=== PATIENT | female | born 1975 | race Caucasian/White ===

== ENCOUNTER 2018-02-18 14:57 | Outpatient (CLI) | payer OTHER | END 2018-02-18 14:58 | disposition home or self-care (01) | LOC: BICMAMMO 14:57 | PROVIDERS: ATTEND Obstetrics & Gynecology | DX: Z12.31 Encounter for screening mammogram for malignant neoplasm of breast (principal); Z80.3 Family history of malignant neoplasm of breast | CPT/HCPCS: 77063; 77067 ==

== ENCOUNTER 2019-02-21 13:18 | Outpatient (CLI) | payer OTHER ==
--- NOTE | 2019-02-21 14:14 | MMO ---
Bilateral MAMMO Bilat Screen [facility]. CLINICAL HISTORY: Patient is 43 years old and is seen for screening. The patient has the following family history of breast cancer: maternal aunt, at age 40, malignant (generic). The patient has no personal history of cancer. VIEWS: The views performed were: bilateral craniocaudal with tomosynthesis; bilateral mediolateral oblique with tomosynthesis; and bilateral exaggerated craniocaudal. FILMS COMPARED: The present examination has been compared to a prior imaging study performed at [facility] on 02/18/2018. MAMMOGRAM FINDINGS: The breasts are heterogeneously dense, which could obscure a lesion on mammography. There are no suspicious masses, suspicious calcifications, or new areas of architectural distortion. IMPRESSION: THERE IS NO MAMMOGRAPHIC EVIDENCE OF MALIGNANCY. A ROUTINE FOLLOW-UP MAMMOGRAM IN 1 YEAR IS RECOMMENDED. THE RESULTS OF THIS EXAM WERE SENT TO THE PATIENT. ACR BI-RADS Category 1 - Negative MAMMOGRAPHY NOTE: 1. A negative mammogram report should not delay a biopsy if a dominant of clinically suspicious mass is present. 2. Approximately 10% to 15% of breast cancers are not detected by mammography. 3. Adenosis and dense breasts may obscure an underlying neoplasm. Reported by: VANESSA DOTY MD Electonically Signed: [id number]
== END 2019-02-21 13:19 | disposition home or self-care (01) ==
LOC: BICMAMMO 13:18
PROVIDERS: ATTEND Obstetrics & Gynecology
DX: Z12.31 Encounter for screening mammogram for malignant neoplasm of breast (principal); Z80.3 Family history of malignant neoplasm of breast
CPT/HCPCS: 77063; 77067

== ENCOUNTER 2020-02-21 09:42 | Outpatient (CLI) | payer OTHER ==
--- NOTE | 2020-02-21 10:55 | MMO ---
Bilateral MAMMO Bilat Diag [facility]. CLINICAL HISTORY: Patient is 44 years old and is seen for diagnostic exam and skin thickening or retraction on clinical examination in the right breast at 6 o'clock. The patient has the following family history of breast cancer: maternal aunt, at age 40, malignant (generic). The patient has no personal history of cancer. VIEWS: The views performed were: bilateral craniocaudal with tomosynthesis; bilateral mediolateral oblique with tomosynthesis; and bilateral mediolateral with tomosynthesis. FILMS COMPARED: The present examination has been compared to prior imaging studies performed at [facility] on 02/18/2018, 02/21/2019 and 02/21/2020. This study has been interpreted with the assistance of computer-aided detection. MAMMOGRAM FINDINGS: The breasts are heterogeneously dense, which could obscure a lesion on mammography. There is an irregular mass seen in the posterior central region of the right breast. In the left breast, there are no suspicious masses, calcifications or areas of architectural distortion. IMPRESSION: MASS IN THE RIGHT BREAST IS HIGHLY SUGGESTIVE OF MALIGNANCY. AN ULTRASOUND-GUIDED BREAST BIOPSY IS RECOMMENDED. THE RESULTS OF THIS EXAM WERE SENT TO THE PATIENT. ACR BI-RADS Category 5 - Highly suggestive of malignancy - appropriate action should be taken MAMMOGRAPHY NOTE: 1. A negative mammogram report should not delay a biopsy if a dominant of clinically suspicious mass is present. 2. Approximately 10% to 15% of breast cancers are not detected by mammography. 3. Adenosis and dense breasts may obscure an underlying neoplasm. Reported by: VANESSA DOTY MD Electonically Signed: [id number]
--- NOTE | 2020-02-21 12:30 | ULT ---
RIGHT BREAST ULTRASOUND: HISTORY: Dimpling of the right nipple. FINDINGS: Correlation is made with the mammogram of same date. Sonographic evaluation of the right breast demonstrates an irregular shadowing solid-appearing mass a t the 8 o'clock position of the right retroareolar breast corresponding to mammographic finding and m easuring about 2 cm in largest dimension. The right axilla demonstrates no abnormal lymph nodes. IMPRESSION: BIRADS category 5: highly suggestive for malignancy. Ultrasound-guided biopsy is recommended. Discussed in person with the patient at 10:[address] Kayla Nolan's nurse, Kim Garcia, over the telephone at 10:50 a.m. REMI HUBBARD
== END 2020-02-21 09:43 | disposition home or self-care (01) ==
LOC: BICMAMMO 09:42
PROVIDERS: ATTEND Obstetrics & Gynecology
DX: Z87.2 Personal history of diseases of the skin and subcutaneous tissue (principal); N63.13 Unspecified lump in the right breast, lower outer quadrant
CPT/HCPCS: 77066; G0279

== ENCOUNTER 2020-05-02 07:34 | Outpatient (CLI) | payer MEDICAID, OTHER ==
[2020-05-02 16:50] LABS: SARS-CoV-2 MS2 Positive; SARS-CoV-2 N Gene Negative; SARS-CoV-2 S Gene Negative; SARS-CoV-2 by NAA Not Detected (NotDetected); SARS-CoV-2 orf1ab Negative
== END 2020-05-02 07:35 | disposition home or self-care (01) ==
LOC: LABBT 07:34
PROVIDERS: ATTEND Surgery
DX: C50.919 Malignant neoplasm of unspecified site of unspecified female breast (principal); Z20.828 Contact with and (suspected) exposure to other viral communicable diseases
CPT/HCPCS: 87635; U0003

== ENCOUNTER 2020-05-04 11:01 | Day surgery (SDC) | payer MEDICAID ==
[2020-05-03 09:24] VITALS: BMI 23.3
[2020-05-04] MEDS ORDERED: PROPOFOL 200 MG/20 ML VIAL ONE (13:31)
[2020-05-04] MEDS ORDERED: Fentanyl 100 MCG/2 ML VIAL ONE (14:30)
[2020-05-04] MEDS ORDERED: Propofol 500 MG/50 ML VIAL ONE (14:30)
[2020-05-04] MEDS ORDERED: Midazolam HCl 2 mg/2 ml Vial ONE (14:30)
[2020-05-04] MEDS ORDERED: Lidocaine 2% w/Epinephrine 1:200K 20 ML VIAL ONE (14:39)
[2020-05-04] MEDS ORDERED: Bupivacaine 0.25% HCL 30 ML VIAL ONE (14:39)
--- NOTE | 2020-05-04 16:15 | RAD ---
Chest AP view INDICATION: Mediport placement COMPARISON: Prior chest one view dated July 29, 2014 FINDINGS: Lungs: The lungs are clear Cardiac silhouette: The cardiomediastinal silhouette appears within normal limits. Pulmonary vasculature: Normal Pleural spaces: No pleural effusion or pneumothorax is demonstrated. Upper abdomen: No abnormality seen. Osseous structures: No acute osseous abnormality. Additional findings: There is a new right IJ chest wall port. Tip of the catheter is seen within the region of SVC. IMPRESSION: New right IJ chest wall port. No pneumothorax.
--- NOTE | 2020-05-07 07:55 | OP ---
DATE OF PROCEDURE: 05/04/2020 PREOPERATIVE DIAGNOSIS: Breast cancer. POSTOPERATIVE DIAGNOSIS: Breast cancer. PROCEDURE PERFORMED: Tunneled central line with subcutaneous port (MediPort, CT injectable). ANESTHESIA: General. ESTIMATED BLOOD LOSS: Minimal. COMPLICATIONS: None. SPECIMENS: None. FINDINGS: Right IJ. DESCRIPTION OF PROCEDURE: The patient was taken to the operating room and laid supine on the operating room table. After sedation was obtained, bilateral neck and chest were prepped and draped in a sterile fashion. Local anesthetic infiltrated over the right internal jugular vein. Internal jugular vein was cannulated using a 22-gauge Finder needle followed by a Seldinger needle. Wire was passed into the superior vena cava under fluoro guidance. A small gomez was made at the wire entrance site. A separate 3-cm incision was made in the right upper chest. Subcutaneous pocket made below the lower incision. Tubing for the MediPort tunneled from the inferior to superior incision and suture sheath was placed over the wire into the superior vena cava. The dilator and wire were removed. The end of the catheter was sewed into the sheath. The sheath was peeled away. The tip of the catheter was at the atriocaval junction. MediPort tubing was cut to fit the MediPort at the lower incision, connected to the MediPort. The MediPort was sewn to the chest wall in the subcutaneous pocket using Prolene. The wounds were all irrigated and closed using 3-0 Vicryl, 4-0 Monocryl, and Dermabond. The MediPort flushes and draws blood without difficulty. It was flushed with a heparin flush. The patient was sent to Recovery in stable condition. All instrument counts, needle counts, and lap counts were correct. Job ID: [id number]
== END 2020-05-04 17:00 | disposition home or self-care (01) ==
LOC: SDC 11:01
PROVIDERS: ATTEND Surgery
PROC: 02HV33Z Insertion of Infusion Device into Superior Vena Cava, Percutaneous Approach (ICD-10-PCS; principal; 2020-05-04)
DX: C50.919 Malignant neoplasm of unspecified site of unspecified female breast (principal); F41.9 Anxiety disorder, unspecified; Z79.899 Other long term (current) drug therapy; Z88.1 Allergy status to other antibiotic agents; Z88.5 Allergy status to narcotic agent
CPT/HCPCS: 71045; C1788; J0690; J1642; J2250; J2704; J3010; S0020

== ENCOUNTER 2022-02-24 08:19 | Outpatient (CLI) | payer OTHER | END 2022-02-24 08:20 | disposition home or self-care (01) | LOC: BICMAMMO 08:19 | PROVIDERS: ATTEND Internal Medicine Hematology & Oncology | DX: Z08 Encounter for follow-up examination after completed treatment for malignant neoplasm (principal); Z85.3 Personal history of malignant neoplasm of breast; Z98.890 Other specified postprocedural states | CPT/HCPCS: 77066; G0279 ==

== ENCOUNTER 2022-10-14 09:52 | Outpatient (CLI) | payer OTHER | END 2022-10-14 09:53 | disposition home or self-care (01) | LOC: BICMAMMO 09:52 | PROVIDERS: ATTEND Internal Medicine Hematology & Oncology | DX: C50.511 Malignant neoplasm of lower-outer quadrant of right female breast (principal); M85.80 Other specified disorders of bone density and structure, unspecified site | CPT/HCPCS: 77080 ==

== ENCOUNTER 2023-09-22 08:54 | Outpatient (CLI) | payer OTHER | END 2023-09-22 08:55 | disposition home or self-care (01) | LOC: SCSMRI 08:54 | PROVIDERS: ATTEND Nurse Practitioner Family | DX: M54.16 Radiculopathy, lumbar region (principal); M47.12 Other spondylosis with myelopathy, cervical region; M48.02 Spinal stenosis, cervical region; M48.04 Spinal stenosis, thoracic region; C79.51 Secondary malignant neoplasm of bone; C78.7 Secondary malignant neoplasm of liver and intrahepatic bile duct; S22.051A Stable burst fracture of T5-T6 vertebra, initial encounter for closed fracture; S22.061A Stable burst fracture of T7-T8 vertebra, initial encounter for closed fracture; S22.081A Stable burst fracture of T11-T12 vertebra, initial encounter for closed fracture | CPT/HCPCS: 72141; 72146; 72148 ==

== ENCOUNTER 2023-09-25 12:11 | Outpatient (CLI) | payer OTHER ==
[2023-09-25] MEDS ORDERED: Magnevist 469MG/ML 20 ML VIAL ONE ×2 (15:09)
== END 2023-09-25 12:12 | disposition home or self-care (01) ==
LOC: MRI 12:11
PROVIDERS: ATTEND Radiology Radiation Oncology
DX: C79.51 Secondary malignant neoplasm of bone (principal); D49.7 Neoplasm of unspecified behavior of endocrine glands and other parts of nervous system; M84.48XA Pathological fracture, other site, initial encounter for fracture; M48.04 Spinal stenosis, thoracic region; G96.198 Other disorders of meninges, not elsewhere classified
CPT/HCPCS: 72142; 72147; A9579

== ENCOUNTER → 2023-10-05 | Day surgery (SDC) | payer OTHER ==
[~2023-10-05] MED LIST: Lidocaine 1% PF 5 ML VIAL ONE; Sodium Bicarbonate 2.5 MEQ/5 ML SDV ONE
== END ==
LOC: ULT 10:15
PROVIDERS: ATTEND Internal Medicine Hematology & Oncology
PROC: 07963ZX Drainage of Left Axillary Lymphatic, Percutaneous Approach, Diagnostic (ICD-10-PCS; principal; 2023-10-05)
DX: C50.511 Malignant neoplasm of lower-outer quadrant of right female breast (principal); C22.9 Malignant neoplasm of liver, not specified as primary or secondary; C79.51 Secondary malignant neoplasm of bone; Z17.0 Estrogen receptor positive status [ER+]; Z88.1 Allergy status to other antibiotic agents; Z88.5 Allergy status to narcotic agent; Z88.8 Allergy status to other drugs, medicaments and biological substances
CPT/HCPCS: 38505; 76942; 88305; 88341; 88342

== ENCOUNTER 2023-10-06 10:10 | Outpatient (CLI) | payer OTHER | END 2023-10-06 10:11 | disposition home or self-care (01) | LOC: SCSMRI 10:10 | PROVIDERS: ATTEND Internal Medicine Hematology & Oncology | DX: C50.911 Malignant neoplasm of unspecified site of right female breast (principal); C79.51 Secondary malignant neoplasm of bone | CPT/HCPCS: 70553 ==

== ENCOUNTER → 2023-10-20 | Day surgery (SDC) | payer OTHER ==
[~2023-10-20] MED LIST changes: +FLU VACC QS2023-24(6MOS UP)/PF 60 MCG/0.5 ML SYRINGE IM ONE; -Lidocaine 1% PF 5 ML VIAL ONE; +Methotrexate Sodium/PF 12 MG in Sodium Chloride 0.9% 9.52 ML IT SCH
[2023-10-20 09:50] VITALS: BP 160/90; TEMP 98.5
== END ==
LOC: RAD 07:41
PROVIDERS: ATTEND Internal Medicine Hematology & Oncology
PROC: 009U3ZX Drainage of Spinal Canal, Percutaneous Approach, Diagnostic (ICD-10-PCS; principal; 2023-10-20)
PROC: B01BZZZ Fluoroscopy of Spinal Cord (ICD-10-PCS; principal; 2023-10-20)
DX: C50.511 Malignant neoplasm of lower-outer quadrant of right female breast (principal); Z17.0 Estrogen receptor positive status [ER+]; Z98.890 Other specified postprocedural states; Z88.1 Allergy status to other antibiotic agents; Z88.5 Allergy status to narcotic agent; Z88.8 Allergy status to other drugs, medicaments and biological substances; Z79.899 Other long term (current) drug therapy
CPT/HCPCS: 62270; 88112; J9250

== ENCOUNTER 2023-10-21 08:24 | Day surgery (SDC) | payer OTHER ==
[2023-10-20 14:24] VITALS: BMI 19.5
[2023-10-21] MEDS ORDERED: Midazolam HCl 2 mg/2 ml Vial ONE (09:59)
[2023-10-21] MEDS ORDERED: Famotidine/PF 20 mg/2ml Vial ONE (10:00)
[2023-10-21 10:07] LABS: #Monocytes 0.2 thou/uL (0.11-0.59); #Neutrophils 4.3 thou/uL (1.40-6.50); %Eosinophils 0.3 % (0.0-10.0); %Lymphocytes 25.4 % (21.0-51.0); %Monocytes 2.8 % (0.0-10.0); %Neutrophils 69.9 % (42.0-75.0); Hematocrit 37.2 % (36.0-47.0); Mean Corpuscular HGB CONC 32.3 g/dL (32.0-36.0); Mean Corpuscular Hemoglobin 26.5 pg (27.0-31.0); Mean Corpuscular Volume 82.1 fl (78.0-98.0); Platelet Count 184 10x3/uL (130-400); RBC Distribution Width 23.2 % (11.5-14.5); Red Blood Cell (RBC) Count 4.53 mill/uL (4.20-5.40); White Blood Cell (WBC) Count 6.1 10x3/uL (4.8-10.8)
[2023-10-21 10:23] LABS: Anion Gap 17 mmol/L (10-20); BUN (Urea Nitrogen) 24 mg/dL (7.0-18.7); Calc. Creatinine Clearance 97 mL/min (70-130); Calcium 9.5 mg/dL (7.8-10.44); Carbon Dioxide 23 mmol/L (22-29); Chloride 100 mmol/L (98-107); Estimated GFR 113; Glucose 88 mg/dL (70-105); Sodium 136 mmol/L (136-145)
[2023-10-21] MEDS ORDERED: EPINEPHrine 1 MG/ML VIAL ONE (10:36)
[2023-10-21] MEDS ORDERED: Bupivacaine 0.25% HCL 30 ML VIAL ONE (10:36)
[2023-10-21] MEDS ORDERED: Lidocaine 2% PF 5 ML VIAL ONE (10:37)
[2023-10-21] MEDS ORDERED: Propofol 1,000 MG/100 ML VIAL IV ONE (10:38)
[2023-10-21] MEDS ORDERED: Lidocaine 1% PF 5 ML VIAL ONE (10:45)
[2023-10-21] MEDS ORDERED: CEFAZOLIN 2 GM VIAL ONE (10:47)
[2023-10-21] MEDS ORDERED: Sodium Chloride 0.9% 100 ML ONE (10:47)
[2023-10-21] MEDS ORDERED: fentaNYL PF 100 MCG/2 ML SYRINGE ONE (10:57)
[2023-10-21] MEDS ORDERED: Dexamethasone 20 MG/5 ML VIAL ONE (11:15)
== END 2023-10-21 13:24 | disposition home or self-care (01) ==
LOC: SDC 08:24
PROVIDERS: ATTEND Surgery
PROC: 0JH60WZ Insertion of Totally Implantable Vascular Access Device into Chest Subcutaneous Tissue and Fascia, Open Approach (ICD-10-PCS; principal; 2023-10-21)
DX: C50.511 Malignant neoplasm of lower-outer quadrant of right female breast (principal); C79.51 Secondary malignant neoplasm of bone; Z88.5 Allergy status to narcotic agent; Z88.1 Allergy status to other antibiotic agents; Z88.8 Allergy status to other drugs, medicaments and biological substances
CPT/HCPCS: 71045; 80048; 85025; C1788; J0171; J0665; J1100; J1642; J2001; J2250; J2704; J3490; S0028

== ENCOUNTER 2023-11-27 16:09 | Inpatient (IN) | payer OTHER ==
[~2023-11-27 16:09] MED LIST changes: -FLU VACC QS2023-24(6MOS UP)/PF 60 MCG/0.5 ML SYRINGE IM ONE; +Iopamidol-370 76% 500 ML MDV (1 ML CHARGE) ONE; -Methotrexate Sodium/PF 12 MG in Sodium Chloride 0.9% 9.52 ML IT SCH; -Sodium Bicarbonate 2.5 MEQ/5 ML SDV ONE
[2023-11-27 16:49] LABS: Hematocrit 23.3 % (36.0-47.0); Hemoglobin 7.8 g/dL (12.0-16.0); Mean Corpuscular HGB CONC 33.5 g/dL (32.0-36.0); Mean Corpuscular Hemoglobin 29.7 pg (27.0-31.0); Mean Corpuscular Volume 88.6 fL (78.0-98.0); Platelet Count 63 10x3/uL (130-400); RBC Distribution Width 28.2 % (11.5-14.5); Red Blood Cell (RBC) Count 2.63 mill/uL (4.20-5.40)
[2023-11-27 16:53] LABS: PTT 23.9 sec (22.9-36.1)
[2023-11-27 16:54] LABS: INR-International Normal Ratio 1.1
[2023-11-27 17:03] LABS: Troponin I 0.099 ng/mL (< 0.028)
[2023-11-27 17:06] LABS: Anion Gap 12 mmol/L (10-20)
[2023-11-27] MEDS ORDERED: Acetaminophen 500 MG TAB ONE (17:10)
[2023-11-27 17:11] LABS: ALT (SGPT) 134 U/L (8-55); AST (SGOT) 151 U/L (5-34); Albumin 2.2 g/dL (3.5-5.0); Alkaline Phosphatase 739 U/L (40-110); BUN (Urea Nitrogen) 17 mg/dL (7.0-18.7); Bilirubin, Total 1.9 mg/dL (0.2-1.2); CK (CPK) 484 U/L (29-168); Calc. Creatinine Clearance 0 mL/min (70-130); Calcium 8.3 mg/dL (7.8-10.44); Carbon Dioxide 28 mmol/L (22-29); Chloride 99 mmol/L (98-107); Estimated GFR 125; Glucose 99 mg/dL (70-105); Lipase 25 U/L (8-78); Magnesium 2.1 mg/dL (1.6-2.6); Potassium 4.3 mmol/L (3.5-5.1); Protein, Total 5.2 g/dL (6.0-8.3); Sodium 135 mmol/L (136-145)
[2023-11-27 17:23] LABS: Influenza A by NAA Not Detected (NotDetected); Influenza B by NAA Not Detected (NotDetected); RSV by NAA Not Detected (NotDetected); SARS-CoV-2 NAA Rapid Test Not Detected (NotDetected)
[2023-11-27 17:27] LABS: Anisocytosis MODERATE=16-30 cells HPF (0-5); Band 3 % (5-11); Elliptocytes SLIGHT = 2-5 cells HPF (0-1); Large Platelets 12.5 % (0-5); Lymphocytes 77 % (21-51); Metamyelocyte 2 % (0-0); Monocytes 3 % (0-10); Myelocyte 4 % (0-0); Neutrophil 7 % (42-75); Nucleated RBC (Manual Ct) 31 % (0); Other Cell Types 2.7; Ovalocytes SLIGHT = 2-5 cells HPF (0-1); Platelet Adequacy Comment Platelets Decreased; Poikilocytosis SLIGHT = 6-15 cells HPF (0-5); Polychromasia MODERATE = 3-4 cells HPF (0-2); Reactive Lymphocytes 2 % (0-10); Reflex for Review?? YES; Smudge Cells 38.4 %; Spherocytes SLIGHT = 1-5 cells HPF (None Seen)
[2023-11-27] MEDS ORDERED: Piperacillin/Tazobactam 4.5 GM VIAL ONE (17:30)
[2023-11-27] MEDS ORDERED: Ipratropium/Albuterol 3 ML NEB EZPAP PRN (18:27)
[2023-11-27] MEDS ORDERED: Vancomycin 1 GM/200 ML (FROZEN) BAG ONE (18:30)
[2023-11-27] MEDS ORDERED: Guaifenesin DM 100-10/5 ML UDCUP PO PRN (18:49)
[2023-11-27] MEDS ORDERED: Ondansetron ODT 4 MG TAB PO PRN (19:00)
[2023-11-27 19:01] LABS: Bacteria/HPF None Seen HPF (None Seen); Bilirubin Negative (Negative); Blood, Urine Negative (Negative); CAUTI Indications for Culture Dysuria,urgency,freq; Clarity Clear (Clear); Glucose, Urine (Dipstick) Normal (Negative); Ketone, Urine Trace mg/dL (Negative); Leukocyte Negative Leu/uL (Negative); Nitrite Negative (Negative); Protein, Urine (Dipstick) Negative (Neg-Trace); RBC/HPF None Seen HPF (0-3); Specific Gravity, Urine 1.011 (1.002-1.036); Squamous Epithelial None Seen HPF (0-3); Urobilinogen Normal mg/dL (Less than 2); WBC/HPF None Seen HPF (0-3)
[2023-11-27 19:14] LABS: Urine Culture Reflex No No
[2023-11-27 22:14] VITALS: BMI 19.3
[2023-11-27] MEDS: Piperacillin/Tazobactam 3.375 GM in Sodium Chloride 0.9% 100 ML IVPB SCH (22:38)
[2023-11-27] MEDS: Dexamethasone 1 MG TAB PO SCH (22:39)
[2023-11-28] MEDS: Vancomycin 1 GM in Premix 1 BAG IVPB SCH (00:08)
[2023-11-28] MEDS ORDERED: Vancomycin 1 GM in Premix 1 BAG IVPB SCH (02:00)
[2023-11-28 02:33] LABS: Hematocrit 26.1 % (36.0-47.0); Hemoglobin 8.9 g/dL (12.0-16.0); Mean Corpuscular HGB CONC 34.1 g/dL (32.0-36.0); Mean Corpuscular Hemoglobin 28.9 pg (27.0-31.0); Mean Corpuscular Volume 84.7 fL (78.0-98.0); Mean Platelet Volume 11.5 fL (7.4-10.4); Platelet Count 52 10x3/uL (130-400); RBC Distribution Width 22.9 % (11.5-14.5); Red Blood Cell (RBC) Count 3.08 mill/uL (4.20-5.40)
[2023-11-28 02:50] LABS: Band 3 % (5-11); Large Platelets 2.9 % (0-5); Lymphocytes 88 % (21-51); Myelocyte 3 % (0-0); Neutrophil 6 % (42-75); Nucleated RBC (Manual Ct) 27 % (0); Platelet Adequacy Comment Platelets Decreased; Polychromasia SLIGHT = 2-3 cells HPF (0-2); Smudge Cells 8.8 %
[2023-11-28 03:00] LABS: Legionella Urinary Ag Negative (Negative); Strep pneumo Urine Ag NEGATIVE (NEGATIVE)
[2023-11-28 04:03] LABS: Anion Gap 11 mmol/L (10-20); Globulin 2.6 g/dL (2.4-3.5)
[2023-11-28 04:04] LABS: Vancomycin, Random 38.4 ug/mL (See Comment)
[2023-11-28 04:07] LABS: ALT (SGPT) 102 U/L (8-55); AST (SGOT) 117 U/L (5-34); Albumin 1.8 g/dL (3.5-5.0); Alkaline Phosphatase 575 U/L (40-110); BUN (Urea Nitrogen) 11 mg/dL (7.0-18.7); Bilirubin, Total 2.1 mg/dL (0.2-1.2); Calc. Creatinine Clearance 161 mL/min (70-130); Calcium 7.4 mg/dL (7.8-10.44); Carbon Dioxide 24 mmol/L (22-29); Chloride 104 mmol/L (98-107); Estimated GFR 128; Glucose 141 mg/dL (70-105); Potassium 3.4 mmol/L (3.5-5.1); Protein, Total 4.4 g/dL (6.0-8.3); Sodium 136 mmol/L (136-145)
[2023-11-28] MEDS: Potassium Chloride 20 MEQ TAB PO SCH (08:16)
[2023-11-28] MEDS: Dexamethasone 1 MG TAB PO SCH (08:17)
[2023-11-28] MEDS: Ipratropium/Albuterol 3 ML NEB NEB SCH ×2 (10:58→14:10)
[2023-11-28] MEDS: NS 0.9% w/ 20 MEQ KCL 1,000 ML/1,000 ML BAG IV SCH (11:22)
[2023-11-28] MEDS: TBO-Filgrastim 300 MCG/0.5 ML VIAL SC SCH (11:23)
[2023-11-28] MEDS ORDERED: diphenhydrAMINE 50 MG/ML VIAL IVP PRN (14:48)
[2023-11-28] MEDS: Ondansetron PF 4 MG/2 ML Vial IVP PRN (15:16)
[2023-11-28] MEDS: Morphine 2 MG/ML VIAL SLOW IVP PRN (15:29)
[2023-11-28] MEDS: Furosemide 40 MG (4 mL) VIAL SLOW IVP SCH (17:17)
[2023-11-28] MEDS: Vancomycin HCl 750 MG in Sodium Chloride 0.9% 250 ML 250 ML IVPB SCH (17:17)
[2023-11-28] MEDS: HYDROcodone/Acetaminophen 10/325 mg Tablet PO PRN (17:17)
[2023-11-28] MEDS: D5W-AA 4.25% with LYTES 1,000 ML IV SCH (17:23)
[2023-11-28] MEDS: Acetaminophen 325 MG TAB PO PRN (18:41)
[2023-11-28] MEDS ORDERED: fentaNYL 25 mcg Patch TD SCH (21:00)
[2023-11-28] MEDS: fentaNYL 25 mcg Patch TD SCH (21:03)
[2023-11-29] MEDS: Albumin 25% 25 GM (100 mL) BOT IVPB SCH (00:24)
[2023-11-29] MEDS: fentaNYL 50 mcg/mL 1 mL Vial SLOW IVP PRN (04:29)
[2023-11-29 06:02] LABS: Hematocrit 21.6 % (36.0-47.0); Hemoglobin 7.3 g/dL (12.0-16.0); Mean Corpuscular HGB CONC 33.8 g/dL (32.0-36.0); Mean Corpuscular Hemoglobin 28.7 pg (27.0-31.0); Mean Platelet Volume 11.3 fL (7.4-10.4); Platelet Count 49 10x3/uL (130-400); RBC Distribution Width 23.1 % (11.5-14.5); Red Blood Cell (RBC) Count 2.54 mill/uL (4.20-5.40)
[2023-11-29 06:12] LABS: Vancomycin, Random 15.5 ug/mL (See Comment)
[2023-11-29 06:15] LABS: Anion Gap 11 mmol/L (10-20); Globulin 2.2 g/dL (2.4-3.5)
[2023-11-29 06:18] LABS: Phosphorus 1.2 mg/dL (2.3-4.7)
[2023-11-29 06:19] LABS: ALT (SGPT) 67 U/L (8-55); AST (SGOT) 76 U/L (5-34); Albumin 2.3 g/dL (3.5-5.0); Alkaline Phosphatase 414 U/L (40-110); BUN (Urea Nitrogen) 14 mg/dL (7.0-18.7); Calc. Creatinine Clearance 148 mL/min (70-130); Calcium 7.4 mg/dL (7.8-10.44); Carbon Dioxide 26 mmol/L (22-29); Chloride 101 mmol/L (98-107); Estimated GFR 126; Glucose 134 mg/dL (70-105); Magnesium 1.9 mg/dL (1.6-2.6); Potassium 3.1 mmol/L (3.5-5.1); Protein, Total 4.5 g/dL (6.0-8.3); Sodium 135 mmol/L (136-145)
[2023-11-29 06:39] LABS: Anisocytosis SLIGHT = 6-15 cells HPF (0-5); Band 15 % (5-11); Large Platelets 13.9 % (0-5); Lymphocytes 46 % (21-51); Metamyelocyte 7 % (0-0); Monocytes 3 % (0-10); Myelocyte 4 % (0-0); Neutrophil 19 % (42-75); Nucleated RBC (Manual Ct) 32 % (0); Platelet Adequacy Comment Platelets Decreased; Polychromasia SLIGHT = 2-3 cells HPF (0-2); Promyelocytes 4 % (0-0); Reactive Lymphocytes 1 % (0-10); Smudge Cells 52.8 %
[2023-11-29] MEDS ORDERED: Electrolyte Replacement Protocol 1 EACH FS SCH (08:15)
[2023-11-29] MEDS: TBO-Filgrastim 300 MCG/0.5 ML VIAL SC SCH (08:40)
[2023-11-29] MEDS: Magnesium 2 GM/50 ML(in water) 2 GM in Premix 1 BAG IVPB SCH (08:40)
[2023-11-29] MEDS: Potassium Chloride 20 MEQ in Premix 1 BAG IVPB SCH (08:40)
[2023-11-29] MEDS: Potassium Phosphate 30 MMOL in Sodium Chloride 0.9% 250 ML 250 ML IVPB SCH (08:40)
[2023-11-29] MEDS: Midazolam HCl 2 mg/2 ml Vial SLOW IVP SCH ×2 (10:41→10:42)
[2023-11-29] MEDS: Rocuronium Bromide 10 MG/ML (10ML VIAL) IVP SCH (10:45)
[2023-11-29] MEDS ORDERED: PROPOFOL 200 MG/20 ML VIAL ONE (10:45)
[2023-11-29] MEDS: PROPOFOL 200 MG/20 ML VIAL IV SCH (10:45)
[2023-11-29] MEDS ORDERED: Rocuronium Bromide 10 MG/ML (10ML VIAL) ONE (10:45)
[2023-11-29] MEDS ORDERED: DISCONTINUE PREVIOUS NARCOTIC PAIN MEDICATIONS AND BENZODIAZEPINES FS SCH (11:30)
[2023-11-29] MEDS: Midazolam HCl 2 mg/2 ml Vial ONE ×2 (11:30→13:25)
[2023-11-29] MEDS: Propofol 1,000 MG/100 ML VIAL IV ONE (11:30)
[2023-11-29] MEDS: Fentanyl CADD 100 ML ONE (11:30)
[2023-11-29] MEDS ORDERED: Fentanyl BOLUS 250 ML IVPB PRN (11:30)
[2023-11-29] MEDS: Fentanyl CADD 100 ML IV SCH (11:30)
[2023-11-29] MEDS ORDERED: Propofol BOLUS 1,000 MG/100 ML VIAL IV PRN (11:30)
[2023-11-29] MEDS ORDERED: Morphine 2 MG/ML VIAL SLOW IVP PRN (11:30)
[2023-11-29] MEDS: Propofol 1,000 MG/100 ML VIAL IV PRN (11:43)
[2023-11-29] MEDS: Albuterol 2.5 MG (3 mL) NEB NEB SCH (13:47)
[2023-11-29] MEDS: methylPREDNISolone Sod Succ 40 MG VIAL IVP SCH (17:10)
[2023-11-29 20:21] LABS: Hematocrit 17.9 % (36.0-47.0); Hemoglobin 5.8 g/dL (12.0-16.0); Mean Corpuscular HGB CONC 32.4 g/dL (32.0-36.0); Mean Corpuscular Hemoglobin 29.1 pg (27.0-31.0); Mean Corpuscular Volume 89.9 fL (78.0-98.0); Platelet Count 39 10x3/uL (130-400); RBC Distribution Width 23.8 % (11.5-14.5); Red Blood Cell (RBC) Count 1.99 mill/uL (4.20-5.40)
[2023-11-30 04:07] LABS: Hematocrit 26.8 % (36.0-47.0); Hemoglobin 8.8 g/dL (12.0-16.0); Mean Corpuscular HGB CONC 32.8 g/dL (32.0-36.0); Mean Corpuscular Hemoglobin 28.4 pg (27.0-31.0); Mean Corpuscular Volume 86.5 fL (78.0-98.0); Platelet Count 31 10x3/uL (130-400); RBC Distribution Width 19.8 % (11.5-14.5)
[2023-11-30 04:21] LABS: Anion Gap 9 mmol/L (10-20); Globulin 1.8 g/dL (2.4-3.5)
[2023-11-30 04:25] LABS: ALT (SGPT) 43 U/L (8-55); AST (SGOT) 60 U/L (5-34); Albumin 2.9 g/dL (3.5-5.0); Alkaline Phosphatase 283 U/L (40-110); BUN (Urea Nitrogen) 18 mg/dL (7.0-18.7); Bilirubin, Total 2.5 mg/dL (0.2-1.2); Calc. Creatinine Clearance 140 mL/min (70-130); Calcium 7.5 mg/dL (7.8-10.44); Carbon Dioxide 27 mmol/L (22-29); Chloride 102 mmol/L (98-107); Estimated GFR 124; Glucose 166 mg/dL (70-105); Potassium 4.4 mmol/L (3.5-5.1); Protein, Total 4.7 g/dL (6.0-8.3); Sodium 134 mmol/L (136-145)
[2023-11-30 04:51] LABS: Magnesium 2.6 mg/dL (1.6-2.6)
[2023-11-30 05:05] LABS: Band 24 % (5-11); Large Platelets 6.4 % (0-5); Lymphocytes 23 % (21-51); Metamyelocyte 4 % (0-0); Myelocyte 7 % (0-0); Neutrophil 36 % (42-75); Nucleated RBC (Manual Ct) 29 % (0); Platelet Adequacy Comment Significant Decrease; Polychromasia SLIGHT = 2-3 cells HPF (0-2); Promyelocytes 6 % (0-0); RBC Morphology Within Normal Limits; Smudge Cells 32.1 %
[2023-11-30 05:09] LABS: Phosphorus 1.4 mg/dL (2.3-4.7)
[2023-11-30] MEDS: Potassium Phosphate 22 MMOL in Sodium Chloride 0.9% 250 ML 250 ML IVPB SCH (05:52)
[2023-11-30 07:20] LABS: Actual Bicarbonate (HCO3a) 23.9 mEq/L (22-28); Base Excess (BEa) -1.1 mEq/L (-2.0 to +3.0); Calcium, Ionized (arterial) 1.05 mmol/L (1.12-1.30); Carboxyhemoglobin (COHb) 0.4 gm% (0.0-3.0); Hematocrit-ABG 30 % (36.0-47.0); Hemoglobin (Hb) 10.1 g/dL (12.0-16.0); O2 Tension (PaO2), arterial 90.4 mmHg (80.0-100.0); pH, Arterial 7.384 (7.35-7.45)
[2023-11-30 07:22] LABS: Puncture Site RRA
[2023-11-30] MEDS: Enoxaparin 30 MG (0.3 mL) SYRINGE SC SCH (07:30)
[2023-11-30 08:24] LABS: Hematocrit 28.7 % (36.0-47.0); Hemoglobin 9.5 g/dL (12.0-16.0); Mean Corpuscular HGB CONC 33.1 g/dL (32.0-36.0); Mean Corpuscular Hemoglobin 28.4 pg (27.0-31.0); Mean Corpuscular Volume 85.7 fL (78.0-98.0); Platelet Count 30 10x3/uL (130-400); RBC Distribution Width 20.1 % (11.5-14.5); Red Blood Cell (RBC) Count 3.35 mill/uL (4.20-5.40)
[2023-11-30 08:37] LABS: Platelet Count 30 10x3/uL (130-400)
[2023-11-30 08:43] LABS: Fibrinogen 521 mg/dL (253-463)
[2023-11-30 08:44] LABS: INR-International Normal Ratio 1.2; PTT 27.9 sec (22.9-36.1); Prothrombin Time 14.8 sec (12.0-14.7)
[2023-11-30 08:45] LABS: D-Dimer Test 3.42 mcg/mL (0.27-0.43)
[2023-11-30 09:07] LABS: Band 21 % (5-11); Giant Platelets 0.9 % (0-5); Large Platelets 8.1 % (0-5); Lymphocytes 21 % (21-51); Metamyelocyte 5 % (0-0); Monocytes 7 % (0-10); Myelocyte 3 % (0-0); Neutrophil 39 % (42-75); Nucleated RBC (Manual Ct) 19 % (0); Platelet Adequacy Comment Significant Decrease; Polychromasia SLIGHT = 2-3 cells HPF (0-2); Reactive Lymphocytes 5 % (0-10)
[2023-11-30] MEDS: Metoclopramide HCl 10 MG (2 mL) VIAL IVP SCH (11:55)
[2023-11-30] MEDS: Levothyroxine Sodium 50 MCG TAB PO SCH (18:45)
[2023-11-30] MEDS: Potassium Phosphate 30 MMOL in Sodium Chloride 0.9% 250 ML 250 ML IVPB SCH (19:14)
[2023-11-30] MEDS: Pantoprazole 40 MG VIAL IVP SCH (20:02)
[2023-11-30] MEDS ORDERED: Pantoprazole DR 40 MG TAB PO SCH (21:00)
[2023-12-01 04:46] LABS: Hematocrit 29.6 % (36.0-47.0); Hemoglobin 9.8 g/dL (12.0-16.0); Mean Corpuscular HGB CONC 33.1 g/dL (32.0-36.0); Mean Corpuscular Hemoglobin 28.6 pg (27.0-31.0); Mean Corpuscular Volume 86.3 fL (78.0-98.0); Platelet Count 22 10x3/uL (130-400); RBC Distribution Width 20.8 % (11.5-14.5); Red Blood Cell (RBC) Count 3.43 mill/uL (4.20-5.40)
[2023-12-01 04:51] LABS: Anion Gap 9 mmol/L (10-20); Globulin 2.3 g/dL (2.4-3.5)
[2023-12-01] MEDS: Levothyroxine Sodium 50 MCG TAB PO SCH (05:05)
[2023-12-01 05:18] LABS: ALT (SGPT) 42 U/L (8-55); AST (SGOT) 69 U/L (5-34); Albumin 2.5 g/dL (3.5-5.0); Alkaline Phosphatase 280 U/L (40-110); BUN (Urea Nitrogen) 18 mg/dL (7.0-18.7); Bilirubin, Total 2.9 mg/dL (0.2-1.2); Calc. Creatinine Clearance 158 mL/min (70-130); Calcium 7.2 mg/dL (7.8-10.44); Carbon Dioxide 28 mmol/L (22-29); Chloride 101 mmol/L (98-107); Estimated GFR 125; Glucose 123 mg/dL (70-105); Potassium 4.8 mmol/L (3.5-5.1); Protein, Total 4.8 g/dL (6.0-8.3); Sodium 133 mmol/L (136-145)
[2023-12-01 06:03] LABS: Anisocytosis SLIGHT = 6-15 cells HPF (0-5); Band 39 % (5-11); Lymphocytes 5 % (21-51); Metamyelocyte 5 % (0-0); Monocytes 1 % (0-10); Myelocyte 11 % (0-0); Neutrophil 38 % (42-75); Nucleated RBC (Manual Ct) 9 % (0); Platelet Adequacy Comment Significant Decrease; Polychromasia SLIGHT = 2-3 cells HPF (0-2); Promyelocytes 3 % (0-0); Smudge Cells 43.2 %; Toxic Granulation MODERATE
[2023-12-01] MEDS: PHOS-NAK 1 PKT PACK PO SCH (11:25)
[2023-12-01] MEDS: Citalopram 20 MG TAB PO SCH (20:56)
[2023-12-02 05:56] LABS: Hematocrit 29.8 % (36.0-47.0); Hemoglobin 9.9 g/dL (12.0-16.0); Mean Corpuscular HGB CONC 33.2 g/dL (32.0-36.0); Mean Corpuscular Hemoglobin 29.4 pg (27.0-31.0); Mean Corpuscular Volume 88.4 fL (78.0-98.0); Platelet Count 22 10x3/uL (130-400); RBC Distribution Width 20.9 % (11.5-14.5); Red Blood Cell (RBC) Count 3.37 mill/uL (4.20-5.40)
[2023-12-02 06:02] LABS: Anion Gap 10 mmol/L (10-20); Globulin 2.7 g/dL (2.4-3.5)
[2023-12-02 06:13] LABS: ALT (SGPT) 46 U/L (8-55); AST (SGOT) 74 U/L (5-34); Albumin 2.2 g/dL (3.5-5.0); Alkaline Phosphatase 340 U/L (40-110); BUN (Urea Nitrogen) 20 mg/dL (7.0-18.7); Bilirubin, Total 3.1 mg/dL (0.2-1.2); Calc. Creatinine Clearance 136 mL/min (70-130); Calcium 7.1 mg/dL (7.8-10.44); Carbon Dioxide 28 mmol/L (22-29); Chloride 102 mmol/L (98-107); Estimated GFR 120; Glucose 183 mg/dL (70-105); Potassium 3.9 mmol/L (3.5-5.1); Protein, Total 4.9 g/dL (6.0-8.3); Sodium 136 mmol/L (136-145)
[2023-12-02 06:56] LABS: Anisocytosis SLIGHT = 6-15 cells HPF (0-5); Band 41 % (5-11); Lymphocytes 2 % (21-51); Metamyelocyte 16 % (0-0); Monocytes 1 % (0-10); Myelocyte 3 % (0-0); Neutrophil 33 % (42-75); Nucleated RBC (Manual Ct) 5 % (0); Platelet Adequacy Comment Significant Decrease; Polychromasia SLIGHT = 2-3 cells HPF (0-2); Promyelocytes 4 % (0-0); Smudge Cells 41.1 %
[2023-12-02] MEDS: Fentanyl CADD 100 ML ONE (07:59)
[2023-12-02] MEDS ORDERED: Iopamidol-370 76% 500 ML MDV (1 ML CHARGE) ONE (08:56)
[2023-12-02] MEDS: Lorazepam 2 MG/ML VIAL SLOW IVP PRN (14:07)
[2023-12-02 14:30] VITALS: BMI 21.5
[2023-12-02] MEDS: Furosemide 20 MG (2 mL) VIAL SLOW IVP SCH (15:01)
[2023-12-03 03:44] LABS: Hematocrit 27.6 % (36.0-47.0); Hemoglobin 8.9 g/dL (12.0-16.0); Mean Corpuscular HGB CONC 32.2 g/dL (32.0-36.0); Mean Corpuscular Hemoglobin 29.4 pg (27.0-31.0); Mean Corpuscular Volume 91.1 fL (78.0-98.0); Platelet Count 21 10x3/uL (130-400); RBC Distribution Width 20.5 % (11.5-14.5); Red Blood Cell (RBC) Count 3.03 mill/uL (4.20-5.40)
[2023-12-03 03:55] LABS: Anion Gap 12 mmol/L (10-20); Globulin 2.6 g/dL (2.4-3.5)
[2023-12-03 04:14] LABS: ALT (SGPT) 42 U/L (8-55); AST (SGOT) 64 U/L (5-34); Albumin 1.9 g/dL (3.5-5.0); Alkaline Phosphatase 327 U/L (40-110); BUN (Urea Nitrogen) 28 mg/dL (7.0-18.7); Bilirubin, Total 2.1 mg/dL (0.2-1.2); Calc. Creatinine Clearance 133 mL/min (70-130); Calcium 6.7 mg/dL (7.8-10.44); Carbon Dioxide 29 mmol/L (22-29); Chloride 104 mmol/L (98-107); Estimated GFR 119; Glucose 236 mg/dL (70-105); Protein, Total 4.5 g/dL (6.0-8.3); Sodium 141 mmol/L (136-145)
[2023-12-03] MEDS ORDERED: HumaLOG 300 UNITS/3 ML VIAL SC PRN (04:18)
[2023-12-03] MEDS ORDERED: Glucagon 1 MG/ML KIT IM PRN (04:18)
[2023-12-03] MEDS ORDERED: Dextrose 5% in Water 1,000 ML IV PRN (04:18)
[2023-12-03] MEDS ORDERED: Dextrose 50% Abboject 50 ML SYRINGE SLOW IVP PRN (04:18)
[2023-12-03 05:14] LABS: Anisocytosis SLIGHT = 6-15 cells HPF (0-5); Band 39 % (5-11); Large Platelets 1.8 % (0-5); Lymphocytes 7 % (21-51); Metamyelocyte 4 % (0-0); Monocytes 1 % (0-10); Myelocyte 4 % (0-0); Neutrophil 45 % (42-75); Nucleated RBC (Manual Ct) 5 % (0); Platelet Adequacy Comment Significant Decrease; Polychromasia MODERATE = 3-4 cells HPF (0-2); Promyelocytes 1 % (0-0); Smudge Cells 22.3 %
[2023-12-03] MEDS: CALCIUM GLUC 1 GM/NS 50 ML 1 GM in Premix 1 BAG IVPB SCH (05:16)
[2023-12-03] MEDS: HumaLOG 300 UNITS/3 ML VIAL SC PRN (05:45)
[2023-12-03] MEDS: Furosemide 40 MG (4 mL) VIAL SLOW IVP SCH (10:18)
[2023-12-03 12:37] VITALS: TEMP 99
[2023-12-03 14:05] VITALS: BP 111/77
[2023-12-03] MEDS ORDERED: Lorazepam 2 MG/ML VIAL SLOW IVP SCH (15:15)
[2023-12-03] MEDS ORDERED: Morphine 4 MG/ML VIAL SLOW IVP SCH (15:15)
== END 2023-12-03 15:24 | disposition hospice, inpatient (51) | DRG 871 ==
LOC: ERS 16:09 → MSONC 18:16 → IMCU/EMU 11-28 16:59 → CCU 11-29 10:09
PROVIDERS: ADMIT Student in an Organized Health Care Education/Training Program; ATTEND Family Medicine
PROC: 30233N1 Transfusion of Nonautologous Red Blood Cells into Peripheral Vein, Percutaneous Approach (ICD-10-PCS; 2023-11-27)
PROC: 3E03329 Introduction of Other Anti-infective into Peripheral Vein, Percutaneous Approach (ICD-10-PCS; 2023-11-27)
PROC: 0BJ08ZZ Inspection of Tracheobronchial Tree, Via Natural or Artificial Opening Endoscopic (ICD-10-PCS; principal; 2023-11-29)
PROC: 0BH17EZ Insertion of Endotracheal Airway into Trachea, Via Natural or Artificial Opening (ICD-10-PCS; 2023-11-29)
PROC: 5A1945Z Respiratory Ventilation, 24-96 Consecutive Hours (ICD-10-PCS; 2023-11-29)
PROC: 4A033R1 Measurement of Arterial Saturation, Peripheral, Percutaneous Approach (ICD-10-PCS; 2023-11-30)
DX: A41.9 Sepsis, unspecified organism (principal); D61.810 Antineoplastic chemotherapy induced pancytopenia; J96.01 Acute respiratory failure with hypoxia; J18.9 Pneumonia, unspecified organism; I21.A1 Myocardial infarction type 2; E43 Unspecified severe protein-calorie malnutrition; C78.7 Secondary malignant neoplasm of liver and intrahepatic bile duct; C79.51 Secondary malignant neoplasm of bone; E87.1 Hypo-osmolality and hyponatremia; K56.7 Ileus, unspecified; C50.919 Malignant neoplasm of unspecified site of unspecified female breast; E87.6 Hypokalemia; Z51.5 Encounter for palliative care; Z66 Do not resuscitate; E83.39 Other disorders of phosphorus metabolism; E88.09 Other disorders of plasma-protein metabolism, not elsewhere classified; Z88.5 Allergy status to narcotic agent; Z88.1 Allergy status to other antibiotic agents; Z88.8 Allergy status to other drugs, medicaments and biological substances; Z79.890 Hormone replacement therapy; Z79.899 Other long term (current) drug therapy; Z90.710 Acquired absence of both cervix and uterus; Z98.890 Other specified postprocedural states; Z74.01 Bed confinement status; Z68.21 Body mass index [BMI] 21.0-21.9, adult; R60.0 Localized edema; M79.622 Pain in left upper arm
CPT/HCPCS: 0241U; 31624; 36415; 36416; 36430; 36600; 71045; 71275; 74178; 76700; 80053; 80202; 81001; 82550; 82805; 83605; 83690; 83735; 83880; 84100; 84443; 84484; 85025; 85049; 85060; 85300; 85362; 85384; 85610; 85730; 86141; 86850; 86900; 86901; 87040; 87070; 87077; 87081; 87086; 87149; 87186; 87205; 87449; 87899; 93005; 93010; 93306; 94002; 94003; 94640; 96361; 96365; 96375; C9113; J0613; J1447; J1815; J1940; J2060; J2250; J2272; J2405; J2543; J2704; J2765; J2920; J3010; J3370; J3370-JW; J3475; J3480; J3490; J7050; J7611; J7620; J8540; P9016; P9047; Q9967